=== PATIENT | female | born 1985 | race Caucasian/White ===

== ENCOUNTER 2016-06-15 18:59 | Inpatient (IN) | payer BC ==
[2016-06-15] MEDS ORDERED: Dinoprostone* 10 MG VAG.SUPP VAGINAL ONE (19:19)
[2016-06-15 21:53] LABS: Add Diff/Slide Review? Slide Review Added; Comments Flag Yes; Hematocrit 39 % (35-47); Hemoglobin 13.5 g/dl (12.0-16.0); Mean Corpuscular HGB Conc 35 g/dl (31-36); Mean Corpuscular Hemoglobin 31 pg (27-31); Mean Corpuscular Volume 91 fL (80-97); Mean Platelet Volume 9 um3 (7.4-10.4); Red Cell Distribution Width 12 % (10.5-15); White Blood Count 13.1 10^3/ul (3.5-10.8)
[2016-06-15 22:09] LABS: Albumin 3.4 g/dL (3.2-5.2); BUN/Creatinine Ratio 23.3 (8-20); Calcium 9.2 mg/dL (8.6-10.3); EGFR African American 220.3 (>60); EGFR Non-African American 171.3 (>60); Globulin 3.2 g/dL (2-4); Potassium 3.9 mmol/L (3.5-5.0); Total Bilirubin 0.3 mg/dL (0.2-1.0); Total Protein 6.6 g/dL (6.4-8.9); Uric Acid 4.9 mg/dL (2.3-6.6)
[2016-06-16] MEDS ORDERED: Oxytocin in LR* 20 UNITS/1,000 ML BAG IVPB ONE (16:26)
[2016-06-16] MEDS ORDERED: Oxytocin in LR* 20 UNITS/1,000 ML BAG IVPB SCH (17:00)
[2016-06-16] MEDS ORDERED: OBEPIDURAL* 250 ML ONE (18:02)
[2016-06-16] MEDS ORDERED: Phenylephrine IV* 40 MCG/ML 10 ML SYRINGE IV PUSH PRN (19:13)
[2016-06-16] MEDS ORDERED: Sodium Citrate/Citric Acid* 15 ML UDC PO PRN (19:13)
[2016-06-16] MEDS ORDERED: Famotidine TAB* 20 MG PO PRN (19:13)
[2016-06-16] MEDS ORDERED: OBEPIDURAL* 250 ML EPIDURAL SCH (20:00)
[2016-06-17] MEDS ORDERED: Glycerin ADULT SUPP PR PRN (01:47)
[2016-06-17] MEDS ORDERED: Witch Hazel PAD* JAR TOPICAL PRN (01:47)
[2016-06-17] MEDS ORDERED: Dibucaine 1% 28.35 GM TUBE PR PRN (01:47)
[2016-06-17] MEDS ORDERED: Acetaminophen TAB* 325 MG PO PRN (01:47)
[2016-06-17] MEDS ORDERED: Oxytocin in LR* 20 UNITS/1,000 ML BAG IVPB SCH (02:00)
[2016-06-17] MEDS: Docusate CAP* 100 MG PO SCH ×3 (07:23→20:44)
[2016-06-17] MEDS: Ibuprofen TAB* 600 MG PO PRN ×2 (07:24→16:09)
[2016-06-17] MEDS ORDERED: Simethicone CHEW TAB* 80 MG PO SCH (08:30)
[2016-06-18] MEDS: Ibuprofen TAB* 600 MG PO PRN ×4 (00:05→20:05)
[2016-06-18 06:47] LABS: Hematocrit 33 % (35-47); Hemoglobin 11.4 g/dl (12.0-16.0); Mean Corpuscular HGB Conc 35 g/dl (31-36); Mean Corpuscular Hemoglobin 32 pg (27-31); Mean Corpuscular Volume 92 fL (80-97); Mean Platelet Volume 8 um3 (7.4-10.4); Red Blood Count 3.58 10^6/ul (4.0-5.4); Red Cell Distribution Width 13 % (10.5-15); White Blood Count 13.7 10^3/ul (3.5-10.8)
[2016-06-18] MEDS: Ferrous Gluconate TAB* 324 MG TAB PO SCH ×2 (07:21→20:54)
[2016-06-18] MEDS: Docusate CAP* 100 MG PO SCH ×3 (07:32→20:54)
[2016-06-19] MEDS: Ibuprofen TAB* 600 MG PO PRN (05:04)
[2016-06-19] MEDS: Docusate CAP* 100 MG PO SCH (07:52)
[2016-06-19 08:20] VITALS: BP 155/78
== END 2016-06-19 11:01 | disposition home or self-care (01) | DRG 560 ==
LOC: MCHOBOUT 18:59 → MCHOB 19:26
PROVIDERS: ADMIT Obstetrics & Gynecology; ATTEND Obstetrics & Gynecology
PROC: 10D07Z6 Extraction of Products of Conception, Vacuum, Via Natural or Artificial Opening (ICD-10-PCS; principal; 2016-06-17)
PROC: 3E033VJ Introduction of Other Hormone into Peripheral Vein, Percutaneous Approach (ICD-10-PCS; 2016-06-17)
PROC: 0W8NXZZ Division of Female Perineum, External Approach (ICD-10-PCS; 2016-06-17)
DX: O13.4 Gestational [pregnancy-induced] hypertension without significant proteinuria, complicating childbirth (principal); Z88.8 Allergy status to other drugs, medicaments and biological substances; Z3A.39 39 weeks gestation of pregnancy; Z37.0 Single live birth
CPT/HCPCS: 36415; 59200; 80053; 84550; 85025; 86850; 86900; 86901; A9270-GY